=== PATIENT | male | born 1960 | race Two or more races ===

== ENCOUNTER 2020-05-09 07:30 | Outpatient (CLI) | payer OTHER | END 2020-05-09 08:02 | disposition home or self-care (01) | LOC: LAB 07:30 | PROVIDERS: ATTEND Specialist | DX: Z12.11 Encounter for screening for malignant neoplasm of colon (principal); Z12.5 Encounter for screening for malignant neoplasm of prostate; Z13.1 Encounter for screening for diabetes mellitus; Z13.220 Encounter for screening for lipoid disorders ==

== ENCOUNTER 2020-05-10 07:18 | Outpatient (CLI) | payer OTHER | END 2020-05-10 07:33 | disposition home or self-care (01) | LOC: TOM 07:18 | PROVIDERS: ATTEND Specialist | DX: R05 Cough (principal); R10.84 Generalized abdominal pain ==

== ENCOUNTER 2024-11-01 09:14 | Outpatient (CLI) | payer OTHER ==
[2024-11-01 10:26] LABS: BASO % 0.7 % (0.1-1.2); EOS # 0.19 (0.04-0.54); EOS % 3.4 % (0.7-7.0); HEMATOCRIT 45.2 % (40.1-51.0); LYMPH # 1.42 (1.18-3.74); LYMPH % 25.1 % (19.3-53.1); MEAN CORPUSCULAR HEMOGLOBIN 29.4 pg (25.6-32.2); MONO # 0.52 (0.24-0.82); MONO % 9.2 % (4.7-12.5); NEUT # 3.44 (1.56-6.13); NEUT % 60.9 % (34.0-71.1); PLATELET COUNT 218 K/uL (163-369); RED BLOOD COUNT 5.11 M/uL (4.63-6.08); RED CELL DISTRIBUTION WIDTH 12.5 % (11.6-14.4)
[2024-11-01 10:28] LABS: PH,URINE 5.5 (5.0-8.0); URINE APPEARANCE Clear; URINE BILIRRUBIN Negative (NEGATIVE); URINE BLOOD Negative; URINE COLOR Yellow; URINE GLUCOSE Negative (NEGATIVE); URINE KETONE Trace (NEGATIVE); URINE LEUKOCYTE Negative; URINE NITRATE Negative; URINE PROTEIN Negative (NEGATIVE); URINE UROBILINOGEN 0.2 E.U./dl
[2024-11-01 10:33] LABS: URINE BACTERIA 6.1 uL (0.0-1933); URINE EPITHELIAL CELLS 4.5 uL (0.0-38.8); URINE RBC 2.6 uL (0.0-20.8); URINE WBC 3.1 uL (0.0-23.2)
[2024-11-01 10:38] LABS: URINE CAST 0.44 uL (0.0-1.40)
[2024-11-01 13:30] LABS: ALBUMIN 3.9 gm/dL (3.4-5.0); BILIRUBIN TOTAL 0.47 mg/dL (0.3-1.2); CALCIUM 9.2 mg/dL (8.5-10.1); CREATININE SERUM 1.08 mg/dL (0.70-1.30); GFR 69.28; GLOBULINA 3.4 G/DL (2.4-3.5); POTASSIUM 4.16 mEq/L (3.5-5.1); PROSTATIC SPECIFIC ANTIGEN 1.35 NG/ML (0.010-4.00); TOTAL PROTEIN 7.3 gm/dL (6.4-8.2); TSH 2.39 uIU/mL (0.358-3.74)
[2024-11-02 07:11] LABS: hav igm Negative (Negative); hcv Non Reactive (Non Reactive); hep b c Negative (Negative); hep b s ag Negative (Negative)
== END 2024-11-01 09:31 | disposition home or self-care (01) ==
LOC: LAB 09:14
PROVIDERS: ATTEND General Practice
DX: Z11.3 Encounter for screening for infections with a predominantly sexual mode of transmission (principal); Z12.11 Encounter for screening for malignant neoplasm of colon; Z13.0 Encounter for screening for diseases of the blood and blood-forming organs and certain disorders involving the immune mechanism; Z13.1 Encounter for screening for diabetes mellitus; Z13.220 Encounter for screening for lipoid disorders; Z13.29 Encounter for screening for other suspected endocrine disorder; Z12.5 Encounter for screening for malignant neoplasm of prostate; N39.0 Urinary tract infection, site not specified

== ENCOUNTER 2024-11-01 09:54 | Outpatient (CLI) | payer OTHER | END 2024-11-01 10:03 | disposition home or self-care (01) | LOC: RAD 09:54 | PROVIDERS: ATTEND General Practice | DX: Z11.3 Encounter for screening for infections with a predominantly sexual mode of transmission (principal); Z12.11 Encounter for screening for malignant neoplasm of colon; Z13.0 Encounter for screening for diseases of the blood and blood-forming organs and certain disorders involving the immune mechanism; Z13.1 Encounter for screening for diabetes mellitus; Z13.220 Encounter for screening for lipoid disorders; Z13.29 Encounter for screening for other suspected endocrine disorder; Z12.5 Encounter for screening for malignant neoplasm of prostate; M54.6 Pain in thoracic spine; R10.9 Unspecified abdominal pain ==

== ENCOUNTER 2024-11-04 10:23 | Outpatient (CLI) | payer OTHER | END 2024-11-04 10:33 | disposition home or self-care (01) | LOC: RAD 10:23 | PROVIDERS: ATTEND General Practice | DX: M54.50 Low back pain, unspecified (principal); Z12.11 Encounter for screening for malignant neoplasm of colon; Z13.220 Encounter for screening for lipoid disorders; M54.6 Pain in thoracic spine ==

== ENCOUNTER → 2024-11-08 11:12 | Outpatient (CLI) | payer OTHER ==
[2024-11-08 13:00] LABS: ob NEGATIVE (NEGATIVE)
== END | disposition home or self-care (01) ==
LOC: LAB 11:12
PROVIDERS: ATTEND General Practice
DX: M54.50 Low back pain, unspecified (principal); Z12.11 Encounter for screening for malignant neoplasm of colon; Z13.220 Encounter for screening for lipoid disorders; M54.6 Pain in thoracic spine